=== PATIENT | female | born 1960 | race Caucasian/White ===

== ENCOUNTER 2021-03-01 14:14 | Emergency (ER) | payer BC ==
[~2021-03-01] VITALS: Ht 167.6 cm; Wt 79.4 kg
[2021-03-01] MEDS ORDERED: HYDR1TAB94 PO (15:06)
== END 2021-03-01 15:22 | disposition home or self-care (01) ==
LOC: ER 14:14
DX: S92.902A Unspecified fracture of left foot, initial encounter for closed fracture (principal); W10.9XXA Fall (on) (from) unspecified stairs and steps, initial encounter; Z88.0 Allergy status to penicillin
CPT/HCPCS: 73630; 99283-25